=== PATIENT | male | born 1970 | race Hispanic/Latino ===

== ENCOUNTER 2022-04-07 20:27 | Observation (INO) | payer BC ==
[2022-04-07 23:20] LABS: #Eosinphils 0.2 thou/uL (0.0-0.7); #Lymphocytes 2.8 thou/uL (1.20-3.40); #Monocytes 0.6 thou/uL (0.11-0.59); #Neutrophils 3.6 thou/uL (1.40-6.50); %Basophils 0.7 % (0.0-1.0); %Eosinophils 3.3 % (0.0-10.0); %Monocytes 7.6 % (0.0-10.0); %Neutrophils 49.5 % (42.0-75.0); Hemoglobin 14.4 g/dL (14.0-18.0); Mean Corpuscular HGB CONC 32.1 g/dL (32.0-36.0); Mean Corpuscular Hemoglobin 30.1 pg (27.0-31.0); Mean Corpuscular Volume 93.8 fL (78.0-98.0); Mean Platelet Volume 6.8 fL (7.4-10.4); Platelet Count 307 thou/uL (130-400); RBC Distribution Width 11.9 % (11.5-14.5); Red Blood Cell (RBC) Count 4.79 mill/uL (4.70-6.10); White Blood Cell (WBC) Count 7.2 thou/uL (4.8-10.8)
[2022-04-07 23:43] LABS: ALT (SGPT) 26 U/L (8-55); AST (SGOT) 22 U/L (5-34); Albumin 3.7 g/dL (3.5-5.0); Alkaline Phosphatase 118 U/L (40-110); Anion Gap 13 mmol/L (10-20); BUN (Urea Nitrogen) 17 mg/dL (8.4-25.7); Bilirubin, Total 0.2 mg/dL (0.2-1.2); Calc. Creatinine Clearance 0 mL/min (70-130); Calcium 9.5 mg/dL (7.8-10.44); Carbon Dioxide 26 mmol/L (22-29); Chloride 104 mmol/L (98-107); Estimated GFR 106; Globulin 2.9 g/dL (2.4-3.5); Glucose 111 mg/dL (70-105); Potassium 4.3 mmol/L (3.5-5.1); Protein, Total 6.6 g/dL (6.0-8.3); Sodium 139 mmol/L (136-145)
[2022-04-08] MEDS ORDERED: Morphine 4 MG/ML VIAL ONE (00:03)
[2022-04-08] MEDS ORDERED: Bisacodyl 5 MG TAB PO PRN (01:50)
[2022-04-08] MEDS ORDERED: Senokot S 8.6-50 MG TAB PO PRN (01:50)
[2022-04-08] MEDS ORDERED: hydrALAZINE 20 MG/ML VIAL SLOW IVP PRN (01:54)
[2022-04-08] MEDS ORDERED: Morphine 2 MG/ML VIAL SLOW IVP PRN (02:14)
[2022-04-08] MEDS: oxyCODONE 5 MG TAB PO PRN ×4 (03:06→19:13)
[2022-04-08 05:10] VITALS: BMI 35.4
[2022-04-08 05:26] LABS: #Basophils 0.1 thou/uL (0.0-0.2); #Eosinphils 0.3 thou/uL (0.0-0.7); #Monocytes 0.5 thou/uL (0.11-0.59); #Neutrophils 3.8 thou/uL (1.40-6.50); %Eosinophils 4.1 % (0.0-10.0); %Lymphocytes 39.4 % (21.0-51.0); %Monocytes 6.5 % (0.0-10.0); Hemoglobin 14.2 g/dL (14.0-18.0); Mean Corpuscular HGB CONC 33.4 g/dL (32.0-36.0); Mean Corpuscular Hemoglobin 31.3 pg (27.0-31.0); Mean Corpuscular Volume 93.7 fL (78.0-98.0); Mean Platelet Volume 6.7 fL (7.4-10.4); Platelet Count 310 thou/uL (130-400); RBC Distribution Width 11.7 % (11.5-14.5); Red Blood Cell (RBC) Count 4.54 mill/uL (4.70-6.10); White Blood Cell (WBC) Count 7.7 thou/uL (4.8-10.8)
[2022-04-08 05:45] LABS: Anion Gap 13 mmol/L (10-20); BUN (Urea Nitrogen) 16 mg/dL (8.4-25.7); CK (CPK) 67 U/L (30-200); Calc. Creatinine Clearance 146 mL/min (70-130); Calcium 9.5 mg/dL (7.8-10.44); Carbon Dioxide 24 mmol/L (22-29); Chloride 104 mmol/L (98-107); Estimated GFR 107; Glucose 138 mg/dL (70-105); Potassium 3.8 mmol/L (3.5-5.1); Sodium 137 mmol/L (136-145)
[2022-04-08 06:05] LABS: Thyroid Stimulating Hormone 3.4023 uIU/mL (0.35-4.94)
[2022-04-08] MEDS ORDERED: Electrolyte Replacement Protocol 1 EACH FS SCH (06:30)
[2022-04-08] MEDS ORDERED: Electrolyte Replacement Protocol FS PRN (07:00)
[2022-04-08 07:03] LABS: Magnesium 1.7 mg/dL (1.6-2.6); Phosphorus 3.5 mg/dL (2.3-4.7)
[2022-04-08 07:38] LABS: SARS-CoV-2 NAA Rapid Test Not Detected (NotDetected)
[2022-04-08] MEDS ORDERED: Magnesium 2 GM/50 ML(in water) 2 GM in Premix Bag 1 BAG IVPB SCH (08:00)
[2022-04-08] MEDS ORDERED: Naproxen 500 MG TAB PO SCH (08:00)
[2022-04-08 08:37] LABS: Free T4 (Free Thyroxine) 1.29 ng/dL (0.70-1.48)
[2022-04-08] MEDS: Acetaminophen 500 MG TAB PO SCH ×3 (08:56→21:52)
[2022-04-08] MEDS: Folic Acid 1 MG TAB PO SCH (08:57)
[2022-04-08] MEDS: Multivit, Therapeutic 1 TAB PO SCH (08:57)
[2022-04-08] MEDS: Cyanocobalamin (Vitamin B-12) 1,000 MCG TAB PO SCH (08:57)
[2022-04-08] MEDS ORDERED: Enoxaparin Sodium 40 MG/0.4 ML SYRINGE SC SCH (09:00)
[2022-04-08] MEDS ORDERED: Lorazepam 1 MG TAB PO PRN (09:12)
[2022-04-08] MEDS ORDERED: Ondansetron ODT 4 MG TAB PO PRN (09:12)
[2022-04-08] MEDS ORDERED: Senokot S 8.6-50 MG TAB PO SCH (09:30)
[2022-04-08] MEDS ORDERED: Cyclobenzaprine 10 MG TAB PO SCH ×2 (09:30→15:00)
[2022-04-08] MEDS ORDERED: Gabapentin 100 MG CAP PO SCH ×2 (09:30→15:00)
[2022-04-08 10:26] LABS: Hep C IgG Ab Non-Reactive (NonReactive); Hep C Index 0.12 S/CO (0-0.79)
[2022-04-08] MEDS ORDERED: Sodium Chloride 0.9% 1,000 ML IV SCH (11:45)
[2022-04-08] MEDS: Thiamine HCl 200 MG/2 ML VIAL SLOW IVP SCH (11:51)
[2022-04-08] MEDS ORDERED: tiZANidine HCl 4 MG TAB PO PRN (14:50)
[2022-04-08] MEDS ORDERED: Dexamethasone 10 MG/ML VIAL SLOW IVP SCH (15:30)
[2022-04-08] MEDS: Gabapentin 300 MG CAP PO SCH ×2 (15:44→21:51)
[2022-04-08] MEDS ORDERED: Cyclobenzaprine 10 MG TAB PO PRN (16:19)
[2022-04-08] MEDS: Dexamethasone 4 MG TAB PO SCH (21:51)
[2022-04-08] MEDS: Enoxaparin Sodium 40 MG/0.4 ML SYRINGE SC SCH (21:52)
[2022-04-09] MEDS: Dexamethasone 4 MG TAB PO SCH ×4 (02:40→20:53)
[2022-04-09 05:09] LABS: Anion Gap 11 mmol/L (10-20); BUN (Urea Nitrogen) 13 mg/dL (8.4-25.7); Calc. Creatinine Clearance 152 mL/min (70-130); Calcium 9.5 mg/dL (7.8-10.44); Carbon Dioxide 26 mmol/L (22-29); Chloride 103 mmol/L (98-107); Estimated GFR 109; Glucose 123 mg/dL (70-105); Potassium 4.3 mmol/L (3.5-5.1); Sodium 136 mmol/L (136-145)
[2022-04-09 06:23] LABS: Band 11 % (5-11); Eosinophils 1 % (0-10); Hemoglobin 14.7 g/dL (14.0-18.0); Lymphocytes 13 % (21-51); MDiff Complete? YES; Mean Corpuscular HGB CONC 31.4 g/dL (32.0-36.0); Mean Corpuscular Hemoglobin 29.6 pg (27.0-31.0); Mean Corpuscular Volume 94.3 fL (78.0-98.0); Mean Platelet Volume 6.7 fL (7.4-10.4); Neutrophil 74 % (42-75); Platelet Count 346 thou/uL (130-400); RBC Distribution Width 11.7 % (11.5-14.5); Red Blood Cell (RBC) Count 4.97 mill/uL (4.70-6.10); White Blood Cell (WBC) Count 9.2 thou/uL (4.8-10.8)
[2022-04-09] MEDS: Acetaminophen 500 MG TAB PO SCH ×3 (08:38→20:50)
[2022-04-09] MEDS: Gabapentin 300 MG CAP PO SCH ×3 (08:39→20:52)
[2022-04-09] MEDS: Cyanocobalamin (Vitamin B-12) 1,000 MCG TAB PO SCH (08:39)
[2022-04-09] MEDS: Folic Acid 1 MG TAB PO SCH (08:39)
[2022-04-09] MEDS: Multivit, Therapeutic 1 TAB PO SCH (08:39)
[2022-04-09] MEDS: Thiamine HCl 200 MG/2 ML VIAL SLOW IVP SCH (08:40)
[2022-04-09] MEDS ORDERED: Methocarbamol 500 MG TAB PO PRN (13:38)
[2022-04-09] MEDS: Methocarbamol 500 MG TAB PO SCH ×2 (14:15→20:51)
[2022-04-09] MEDS: Lidocaine 5% Patch TD SCH (14:17)
[2022-04-09] MEDS: Enoxaparin Sodium 40 MG/0.4 ML SYRINGE SC SCH (20:49)
[2022-04-10] MEDS ORDERED: Transdermal Patch Removal TOP SCH (02:00)
[2022-04-10] MEDS: Dexamethasone 4 MG TAB PO SCH ×3 (02:10→15:14)
[2022-04-10 05:05] LABS: #Lymphocytes 1.2 thou/uL (1.20-3.40); #Monocytes 0.7 thou/uL (0.11-0.59); #Neutrophils 17.7 thou/uL (1.40-6.50); %Eosinophils 0.1 % (0.0-10.0); %Lymphocytes 6.2 % (21.0-51.0); %Monocytes 3.5 % (0.0-10.0); %Neutrophils 90.2 % (42.0-75.0); Hemoglobin 13.6 g/dL (14.0-18.0); Mean Corpuscular HGB CONC 32.6 g/dL (32.0-36.0); Mean Corpuscular Hemoglobin 30.6 pg (27.0-31.0); Mean Corpuscular Volume 93.8 fL (78.0-98.0); Mean Platelet Volume 7.1 fL (7.4-10.4); Platelet Count 353 thou/uL (130-400); RBC Distribution Width 11.7 % (11.5-14.5); Red Blood Cell (RBC) Count 4.44 mill/uL (4.70-6.10); White Blood Cell (WBC) Count 19.6 thou/uL (4.8-10.8)
[2022-04-10 05:21] LABS: Anion Gap 13 mmol/L (10-20); BUN (Urea Nitrogen) 16 mg/dL (8.4-25.7); Calc. Creatinine Clearance 143 mL/min (70-130); Calcium 9.4 mg/dL (7.8-10.44); Carbon Dioxide 22 mmol/L (22-29); Chloride 106 mmol/L (98-107); Estimated GFR 106; Glucose 260 mg/dL (70-105); Potassium 3.7 mmol/L (3.5-5.1); Sodium 137 mmol/L (136-145)
[2022-04-10] MEDS ORDERED: Lorazepam 1 MG TAB PO PRN (09:12)
[2022-04-10] MEDS: Acetaminophen 500 MG TAB PO SCH ×2 (09:33→15:15)
[2022-04-10] MEDS: Multivit, Therapeutic 1 TAB PO SCH (09:34)
[2022-04-10] MEDS: Methocarbamol 500 MG TAB PO SCH ×2 (09:34→15:15)
[2022-04-10] MEDS: Cyanocobalamin (Vitamin B-12) 1,000 MCG TAB PO SCH (09:34)
[2022-04-10] MEDS: Gabapentin 300 MG CAP PO SCH ×2 (09:34→15:14)
[2022-04-10] MEDS: Folic Acid 1 MG TAB PO SCH (09:34)
[2022-04-10] MEDS: Thiamine HCl 200 MG/2 ML VIAL SLOW IVP SCH (09:45)
[2022-04-10 11:54] VITALS: TEMP 97.9
[2022-04-10 12:41] VITALS: BP 142/88
[2022-04-10] MEDS: Lidocaine 5% Patch TD SCH (15:14)
[2022-04-10] MEDS ORDERED: Dexamethasone 1 MG TAB PO SCH (20:00)
[2022-04-11] MEDS ORDERED: Thiamine 100 MG TAB PO SCH (09:00)
[2022-04-11] MEDS ORDERED: Lorazepam 0.5 MG TAB PO PRN (09:12)
[2022-04-12] MEDS ORDERED: Dexamethasone 1 MG TAB PO SCH (20:00)
[2022-04-14] MEDS ORDERED: Dexamethasone 1 MG TAB PO SCH (20:00)
== END 2022-04-10 16:33 | disposition home or self-care (01) ==
LOC: ERS 20:27 → SURG B 04-08 01:18 → 2SW 04-08 12:41
PROVIDERS: ADMIT Hospitalist; ATTEND Hospitalist
DX: M17.12 Unilateral primary osteoarthritis, left knee (principal); M48.061 Spinal stenosis, lumbar region without neurogenic claudication; M79.652 Pain in left thigh; M79.651 Pain in right thigh; M25.562 Pain in left knee; M25.561 Pain in right knee; R53.1 Weakness; R20.2 Paresthesia of skin; M47.816 Spondylosis without myelopathy or radiculopathy, lumbar region; M51.36 Other intervertebral disc degeneration, lumbar region; M51.37 Other intervertebral disc degeneration, lumbosacral region; M48.07 Spinal stenosis, lumbosacral region; M47.817 Spondylosis without myelopathy or radiculopathy, lumbosacral region; Z96.651 Presence of right artificial knee joint; Z20.822 Contact with and (suspected) exposure to COVID-19; W19.XXXA Unspecified fall, initial encounter
CPT/HCPCS: 36415; 70450; 72100; 72148; 72170; 80048; 80053; 82533; 82550; 83735; 84100; 84439; 84443; 84484; 85025; 85652; 86140; 86803; 96372; 96374; 96375; 96376; G0378; J0360; J1650; J2270; J3411; J3475; J7050; J8540; U0002

== ENCOUNTER 2022-04-24 15:34 | Outpatient (CLI) | payer BC ==
[2022-04-24 16:22] LABS: #Basophils 0.1 10x3/uL (0.0-0.2); #Eosinphils 0.1 10x3/uL (0.0-0.5); #Monocytes 0.4 10x3/uL (0.0-1.1); #Neutrophils 6.5 10x3/uL (1.5-8.4); %Basophils 0.7 % (0.0-2.0); %Eosinophils 0.8 % (0.0-6.0); %Lymphocytes 20.6 % (18.0-47.0); %Monocytes 4.3 % (0.0-10.0); %Neutrophils 73.4 % (40.0-75.0); Hemoglobin 13.7 g/dL (13.5-17.5); Mean Corpuscular HGB CONC 35.1 g/dL (32.0-36.0); Mean Corpuscular Hemoglobin 30.3 pg (27.0-33.0); Mean Corpuscular Volume 86.3 fl (81.2-95.1); Mean Platelet Volume 9.2 fl (7.4-10.4); Platelet Count 300 10x3/uL (150-450); RBC Distribution Width 12.6 % (11.5-14.5); Red Blood Cell (RBC) Count 4.52 10x6/uL (4.32-5.72); White Blood Cell (WBC) Count 8.9 10x3/uL (3.5-10.5)
[2022-04-24 16:41] LABS: INR-International Normal Ratio 0.9; Prothrombin Time 10.1 sec (9.5-12.1)
[2022-04-24 16:49] LABS: Anion Gap 13 mmol/L (10-20); BUN (Urea Nitrogen) 19 mg/dL (8.4-25.7); Calc. Creatinine Clearance 0 mL/min (70-130); Calcium 9.4 mg/dL (7.8-10.44); Carbon Dioxide 22 mmol/L (22-29); Chloride 106 mmol/L (98-107); Estimated GFR 101; Glucose 133 mg/dL (70-105); Potassium 4.3 mmol/L (3.5-5.1); Sodium 137 mmol/L (136-145)
== END 2022-04-24 15:35 | disposition home or self-care (01) ==
LOC: LABBT 15:34
PROVIDERS: ATTEND Orthopaedic Surgery
DX: Z01.818 Encounter for other preprocedural examination (principal); S72.402A Unspecified fracture of lower end of left femur, initial encounter for closed fracture
CPT/HCPCS: 80048; 85025; 85610; 87081; 93005; 93010

== ENCOUNTER 2022-06-24 18:50 | Emergency (ER) | payer BC ==
[2022-06-24] MEDS ORDERED: Cyclobenzaprine 10 MG TAB ONE (20:58)
[2022-06-24] MEDS ORDERED: Ketorolac Tromethamine 30 MG/ML VIAL ONE (20:58)
== END 2022-06-24 21:52 | disposition home or self-care (01) ==
LOC: ERS 18:50
DX: M54.50 Low back pain, unspecified (principal)
CPT/HCPCS: 96372; 99283; J1885